=== PATIENT | female | born 1975 | race African-American/Black ===

== ENCOUNTER 2019-05-30 12:40 | Emergency (ER) | payer MEDICAID ==
[~2019-05-30] VITALS: Ht 160 cm; Wt 91.0 kg
[2019-05-30 12:56] VITALS: BP 166/115
[2019-05-30] MEDS ORDERED: SERT20OR6 PO (13:03)
[2019-05-30] MEDS ORDERED: LORA1TAB PO (13:03)
[2019-05-30] MEDS ORDERED: METO-396 PO (13:03)
== END 2019-05-30 14:27 | disposition left against medical advice (07) ==
LOC: ER 12:40
DX: Z53.21 Procedure and treatment not carried out due to patient leaving prior to being seen by health care provider (principal)